=== PATIENT | male | born 1975 | race Caucasian/White ===

== ENCOUNTER 2023-10-02 20:49 | Inpatient (IN) | payer BC ==
[2023-10-02] VITALS (8 sets, daily range): O2SAT 89–94
[~2023-10-02] VITALS: Ht 172.7 cm; Wt 87.5 kg
[2023-10-02] MEDS ORDERED: ALBUTEROL FS 2.5 MG/3 ML VIAL.NEB ONE (21:08)
[2023-10-02] MEDS ORDERED: IPRATROPIUM NEB FS 0.5 MG/2.5 ML AMPUL.NEB ONE (21:08)
[2023-10-02] MEDS ORDERED: ACETAMINOPHEN 650 MG/SUPP.RECT RC ONE ×2 (21:09→21:30)
[2023-10-02] MEDS ORDERED: methylPREDNISolone SOD SUCC 125 MG/2ML VIAL ONE (21:29)
[2023-10-02] MEDS ORDERED: PIPERACI/TAZO 3.375GM/D5W 50ML PB IV ONE (21:29)
[2023-10-02] MEDS ORDERED: methylPREDNISolone SOD SUCC 125 MG/2ML VIAL IV ONE (21:30)
[2023-10-02] MEDS ORDERED: PIPERACILLIN /TAZOBACTAM 3.375 G in IV D5W 50 ML IV ONE (21:30)
[2023-10-02] MEDS ORDERED: ALBUTEROL FS 2.5 MG/3 ML VIAL.NEB NEB ONE (21:30)
[2023-10-02] MEDS ORDERED: IV LR 1000 ML 1,000 ML BAG IV ONE (21:30)
[2023-10-02] MEDS ORDERED: IPRATROPIUM NEB FS 0.5 MG/2.5 ML AMPUL.NEB NEB ONE (21:30)
[2023-10-02] MEDS ORDERED: VANCOMYCIN 1 GM in IV D5W 250 ML IV ONE (21:30)
[2023-10-02 21:33] LABS: BASOPHILS # (AUTO) 0.1 K/uL (0.0-0.2); BASOPHILS % (AUTO) 0.7 % (0.0-2.0); EOSINOPHILS # (AUTO) 0.2 K/uL (0.0-0.7); EOSINOPHILS % (AUTO) 2.2 % (0.0-6.0); HEMATOCRIT 40 % (39-51); HEMOGLOBIN 13.2 g/dL (13.5-17.5); LYMPHOCYTES # (AUTO) 1.6 K/uL (0.8-4.8); LYMPHOCYTES % (AUTO) 18.8 % (20.0-44.0); MEAN CORPUSCULAR HEMOGLOBIN 31 PG (26.0-33.0); MEAN CORPUSCULAR HGB CONC 33 g/dl (31.0-36.0); MEAN CORPUSCULAR VOLUME 93 fL (80-96); MONOCYTES # (AUTO) 0.9 K/uL (0.1-1.30); MONOCYTES % (AUTO) 11.2 % (2.0-12.0); NEUTROPHILS # (AUTO) 5.6 K/uL (1.8-8.9); NEUTROPHILS % (AUTO) 67.1 % (43.0-81.0); PLATELET COUNT (AUTO) 271 K/uL (150-450); RED BLOOD CELL COUNT(AUTO) 4.24 MIL/uL (4.5-6.0); RED CELL DISTRIBUTION WIDTH 15.1 % (11.5-15.0); WHITE BLOOD COUNT (AUTO) 8.4 K/uL (4.3-11.0)
[2023-10-02 21:51] LABS: CALCIUM, SERUM 9.1 mg/dL (8.5-10.1); CARBON DIOXIDE 27 mmol/L (21-32); CHLORIDE 98 mmol/L (98-107); CREATININE 0.5 mg/dL (0.6-1.3); GLUCOSE 152 mg/dL (74-106); POTASSIUM 4.8 mmol/L (3.5-5.1); SODIUM SERUM 133 mmol/L (136-145); UREA NITROGEN, BLOOD 16 mg/dL (7-18)
[2023-10-02 21:53] LABS: INR 1.08 (0.91-1.10); PARTIAL THROMBOPLASTIN TIME 39.5 SEC (24.3-34.3); PROTHROMBIN TIME 11.4 SECS (9.2-11.1)
[2023-10-02 21:55] LABS: APPEARANCE,URINE CLEAR (CLEAR); BILIRUBIN,URINE NEGATIVE (NEGATIVE); BLOOD, URINE 2+ Ery/uL (NEGATIVE); COLOR,URINE YELLOW (YELLOW); KETONES,URINE TRACE mg/dL (NEGATIVE); LEUKOCYTE ESTERASE ,URINE NEGATIVE (NEGATIVE); NITRITE, URINE NEGATIVE (NEGATIVE); PROTEIN,URINE NEGATIVE (NEGATIVE); UGLUCOSE NEGATIVE (NEGATIVE)
[2023-10-02] MEDS ORDERED: VANCOMYCIN 1 GM /D5W 250 ML PB IV ONE (21:56)
[2023-10-02 21:57] LABS: ALANINE AMINOTRANSFERASE 26 U/L (12-78); ALBUMIN 2.4 g/dL (3.4-5.0); ALKALINE PHOSPHATASE 96 U/L (46-116); ASPARTATE AMINOTRANSFERASE 26 U/L (15-37); BILIRUBIN,DIRECT 0.1 mg/dL (0.0-0.2); BILIRUBIN,TOTAL 0.5 mg/dL (0.2-1.0)
[2023-10-02 22:07] LABS: ADD URINE CULTURE NO; BACTERIA,URINE 1+ /HPF (None Seen); SQUAMOUS EPITHELIAL CELL,UR None Seen /HPF (None Seen); WBC,URINE 0-2 /HPF (0-3)
[2023-10-02] MEDS ORDERED: ALBUTEROL FS 2.5 MG/0.5 ML VIAL.NEB NEB ONE (22:30)
[2023-10-02] MEDS ORDERED: ALBUTEROL FS 2.5 MG/0.5 ML VIAL.NEB ONE (22:38)
[2023-10-03] MEDS ORDERED: MAG HYDROX/AL HYDROX/SIMETH 30 ML UDC PO PRN (01:00)
[2023-10-03] MEDS ORDERED: ACETAMINOPHEN 325 MG TABLET PO PRN (01:00)
[2023-10-03] MEDS ORDERED: MAGNESIUM HYDROXIDE 30 ML UDC PO PRN (01:00)
[2023-10-03] MEDS ORDERED: Z GUARD REMEDY 4 OZ OINT TP PRN (01:00)
[2023-10-03] MEDS ORDERED: ONDANSETRON HCL/PF 4 MG/2 ML VIAL IVP PRN (01:00)
[2023-10-03] MEDS ORDERED: IV NS 0.9% 1,000 ML IV PRN (01:00)
[2023-10-03] MEDS ORDERED: IBUPROFEN 400 MG TABLET ONE (01:21)
[2023-10-03] MEDS ORDERED: IBUPROFEN 400 MG TABLET GT ONE (01:30)
[2023-10-03] MEDS ORDERED: DEXTROSE 50%-WATER 50 ML DISP.SYRIN IV PRN (03:30)
[2023-10-03 05:31] LABS: ABG BASE EXCESS -2.3 mmol/L; ABG PCO2 38.1 mmHg (35.0-45.0); ABG PH 7.386 (7.350-7.450); ABG PO2 174.6 mmHg (75.0-100.0); AaDO2 211.3 mmHg; COHb 0.2 % (0.5-1.5); MetHb 0.2 % (0.0-1.5); O2Hb 98.6 % (94.0-97.0); SITE, ABG Right Radial
[2023-10-03] MEDS ORDERED: PIPERACILLIN /TAZOBACTAM 3.375 G in IV D5W 50 ML IV SCH (06:00)
[2023-10-03] MEDS ORDERED: methylPREDNISolone SOD SUCC 40 MG/ML VIAL ONE ×3 (06:20→20:16)
[2023-10-03] MEDS ORDERED: PIPERACI/TAZO 3.375GM/D5W 50ML PB IV ONE ×4 (06:20→23:36)
[2023-10-03] MEDS: BLOOD SUGAR DIAGNOSTIC 1 EACH STRIP IN SCH ×4 (06:27→23:11)
[2023-10-03] MEDS: methylPREDNISolone SOD SUCC 40 MG/ML VIAL IV SCH ×3 (06:28→20:21)
[2023-10-03] MEDS: ALBUTEROL HALF STRENGTH 1.25 MG/3 ML VIAL.NEB NEB SCH ×3 (07:03→23:33)
[2023-10-03] MEDS ORDERED: NYST15PO4 TP (08:46)
[2023-10-03] MEDS ORDERED: NUT.237L31 GT (08:46)
[2023-10-03] MEDS ORDERED: AMLO-212 GT (08:46)
[2023-10-03] MEDS ORDERED: CLOB15OI3 TP (08:46)
[2023-10-03] MEDS ORDERED: LANS30CA56 GT (08:46)
[2023-10-03] MEDS ORDERED: VALP250S4 GT (08:46)
[2023-10-03] MEDS ORDERED: ACET-868 GT ×2 (08:46)
[2023-10-03] MEDS ORDERED: LEVE100S GT (08:46)
[2023-10-03] MEDS ORDERED: ENOX40DI SQ (08:46)
[2023-10-03] MEDS ORDERED: ACET-2605 GT (08:46)
[2023-10-03] MEDS ORDERED: ASCO-352 GT (08:46)
[2023-10-03] MEDS ORDERED: FERR300L GT (08:46)
[2023-10-03] MEDS ORDERED: LACO10SO GT (08:46)
[2023-10-03] MEDS ORDERED: CHLO118L6 TP (08:46)
[2023-10-03] MEDS ORDERED: SODI1TAB66 GT (08:46)
[2023-10-03] MEDS ORDERED: DOCU50LI GT (08:46)
[2023-10-03] MEDS ORDERED: SENN-261 GT (08:46)
[2023-10-03] MEDS ORDERED: ATOR40TA GT (08:46)
[2023-10-03] MEDS ORDERED: NPH,100V SQ (08:46)
[2023-10-03] MEDS ORDERED: DEXT38GE12 GT (08:46)
[2023-10-03] MEDS ORDERED: ZINC56.713 TP (08:46)
[2023-10-03] MEDS ORDERED: MULT9LIQ6 GT (08:46)
[2023-10-03] MEDS ORDERED: LEVA1.2528 IH ×2 (08:46)
[2023-10-03] MEDS ORDERED: KETO15CR2 TP (08:46)
[2023-10-03] MEDS ORDERED: MAGN400O6 GT (08:46)
[2023-10-03] MEDS ORDERED: INSU100V27 SQ (08:46)
[2023-10-03] MEDS ORDERED: LOPE2TAB25 GT (08:46)
[2023-10-03] MEDS ORDERED: PROP40TA7 GT (08:46)
[2023-10-03] MEDS ORDERED: XEROFORM TD (08:46)
[2023-10-03] MEDS: VANCOMYCIN 1.25 GM in IV D5W 250 ML IV SCH ×2 (09:00→21:20)
[2023-10-03] MEDS: PIPERACILLIN /TAZOBACTAM 3.375 G in IV D5W 50 ML IV SCH ×3 (12:00→23:47)
[2023-10-03] MEDS ORDERED: INSULIN REGULAR, HUMAN 100 UNIT/ML 10 ML VIAL ONE (14:23)
[2023-10-03] MEDS ORDERED: VANCOMYCIN 500 MG VIAL ONE (21:09)
[2023-10-03] MEDS ORDERED: ZOLPIDEM TARTRATE 5 MG TABLET PO PRN (22:00)
[2023-10-03] MEDS ORDERED: ALBUTEROL FS 2.5 MG/3 ML VIAL.NEB ONE (23:34)
[2023-10-03] MEDS ORDERED: ONDANSETRON HCL/PF 4 MG/2 ML VIAL ONE (23:49)
[2023-10-04] MEDS ORDERED: INSULIN REGULAR, HUMAN 100 UNIT/ML 10 ML VIAL ONE ×2 (00:43→13:04)
[2023-10-04] MEDS: INSULIN REGULAR, HUMAN 100 UNIT/ML 3 ML VIAL SQ PRN ×2 (00:48→13:08)
[2023-10-04 05:15] LABS: ABG OXYGEN SATURATION 97.9 % (92.0-98.5); ABG PCO2 38.2 mmHg (35.0-45.0); ABG PO2 120.8 mmHg (75.0-100.0); ABG TOTAL HEMOGLOBIN 12.1 G/dL (13.5-18.0); COHb 0.2 % (0.5-1.5); MetHb 0.4 % (0.0-1.5); O2Hb 97.3 % (94.0-97.0); SITE, ABG Right Radial; VENT MODE, BG AC 18 500 40% +5
[2023-10-04] MEDS ORDERED: methylPREDNISolone SOD SUCC 40 MG/ML VIAL ONE ×3 (05:30→21:30)
[2023-10-04] MEDS: methylPREDNISolone SOD SUCC 40 MG/ML VIAL IV SCH ×3 (05:36→21:37)
[2023-10-04 05:53] LABS: BASOPHILS % (AUTO) 0.2 % (0.0-2.0); HEMATOCRIT 34 % (39-51); HEMOGLOBIN 11.2 g/dL (13.5-17.5); LYMPHOCYTES # (AUTO) 1.1 K/uL (0.8-4.8); LYMPHOCYTES % (AUTO) 15.9 % (20.0-44.0); MEAN CORPUSCULAR HEMOGLOBIN 31 PG (26.0-33.0); MEAN CORPUSCULAR HGB CONC 33 g/dl (31.0-36.0); MEAN CORPUSCULAR VOLUME 94 fL (80-96); MONOCYTES # (AUTO) 1.2 K/uL (0.1-1.30); MONOCYTES % (AUTO) 16.7 % (2.0-12.0); NEUTROPHILS # (AUTO) 4.8 K/uL (1.8-8.9); NEUTROPHILS % (AUTO) 67.2 % (43.0-81.0); PLATELET COUNT (AUTO) 169 K/uL (150-450); RED BLOOD CELL COUNT(AUTO) 3.58 MIL/uL (4.5-6.0); WHITE BLOOD COUNT (AUTO) 7.2 K/uL (4.3-11.0)
[2023-10-04 06:07] LABS: CALCIUM, SERUM 8.8 mg/dL (8.5-10.1); CREATININE 0.5 mg/dL (0.6-1.3); MAGNESIUM 1.7 mg/dL (1.8-2.4); PHOSPHORUS 3.9 mg/dL (2.5-4.9); POTASSIUM 3.9 mmol/L (3.5-5.1)
[2023-10-04] MEDS: BLOOD SUGAR DIAGNOSTIC 1 EACH STRIP IN SCH ×3 (06:54→17:46)
[2023-10-04] MEDS: PIPERACILLIN /TAZOBACTAM 3.375 G in IV D5W 50 ML IV SCH ×4 (07:00→23:59)
[2023-10-04] MEDS ORDERED: ALBUTEROL FS 2.5 MG/3 ML VIAL.NEB ONE ×3 (07:30→23:14)
[2023-10-04] MEDS: ALBUTEROL HALF STRENGTH 1.25 MG/3 ML VIAL.NEB NEB SCH ×3 (07:40→23:12)
[2023-10-04] MEDS: VANCOMYCIN 1.25 GM in IV D5W 250 ML IV SCH (09:50)
[2023-10-04] MEDS ORDERED: ENOXAPARIN SODIUM 40 MG/0.4 ML DISP.SYRIN SQ ONE (10:04)
[2023-10-04] MEDS: ENOXAPARIN SODIUM 40 MG/0.4 ML DISP.SYRIN SQ SCH (10:10)
[2023-10-04] MEDS: Magnesium 1GM/D5W 100ML PREMIX 100 ML IV SCH ×2 (11:33→12:30)
[2023-10-04] MEDS ORDERED: methylPREDNISolone SOD SUCC 125 MG/2ML VIAL ONE (13:09)
[2023-10-04] MEDS: VANCOMYCIN 1 GM in IV D5W 250ml IV SCH (18:52)
[2023-10-05] VITALS (20 sets, daily range): BP systolic 90–192; BP diastolic 63–125; TEMP 98.5–98.8; O2SAT 97–100
[2023-10-05] MEDS: BLOOD SUGAR DIAGNOSTIC 1 EACH STRIP IN SCH ×4 (00:05→17:38)
[2023-10-05] MEDS: VANCOMYCIN 1 GM in IV D5W 250ml IV SCH ×2 (02:00→09:56)
[2023-10-05] MEDS ORDERED: methylPREDNISolone SOD SUCC 40 MG/ML VIAL ONE (04:54)
[2023-10-05] MEDS: methylPREDNISolone SOD SUCC 40 MG/ML VIAL IV SCH ×3 (04:54→20:47)
[2023-10-05] MEDS: PIPERACILLIN /TAZOBACTAM 3.375 G in IV D5W 50 ML IV SCH ×4 (05:53→23:56)
[2023-10-05 06:03] LABS: CALCIUM, SERUM 8.8 mg/dL (8.5-10.1); CREATININE 0.6 mg/dL (0.6-1.3); MAGNESIUM 1.7 mg/dL (1.8-2.4); POTASSIUM 3.5 mmol/L (3.5-5.1)
[2023-10-05] MEDS: ALBUTEROL HALF STRENGTH 1.25 MG/3 ML VIAL.NEB NEB SCH ×3 (07:35→23:30)
[2023-10-05] MEDS ORDERED: MORPHINE SULFATE INJ 4 MG/ML DISP.SYRIN IV PRN (09:30)
[2023-10-05] MEDS: LORAZEPAM INJ 2 MG/ML VIAL IV PRN ×2 (09:37→11:04)
[2023-10-05] MEDS: ENOXAPARIN SODIUM 40 MG/0.4 ML DISP.SYRIN SQ SCH (10:00)
[2023-10-05] MEDS: Magnesium 1GM/D5W 100ML PREMIX 100 ML IV SCH ×2 (11:46→13:28)
[2023-10-05] MEDS: GLUCERNA 1.2 1,000 ML BOTTLE NG PRN (14:10)
[2023-10-05] MEDS: VANCOMYCIN HCL 0.75 GM in IV D5W 250 ML IV SCH (17:37)
[2023-10-05] MEDS: INSULIN REGULAR, HUMAN 100 UNIT/ML 3 ML VIAL SQ PRN (18:04)
[2023-10-05] MEDS: PROPOFOL 100 ML IV PRN (21:45)
[2023-10-06] VITALS (26 sets, daily range): BP systolic 98–139; BP diastolic 58–103; TEMP 98–98.7; O2SAT 100
[2023-10-06] MEDS: BLOOD SUGAR DIAGNOSTIC 1 EACH STRIP IN SCH ×5 (00:03→23:47)
[2023-10-06] MEDS: INSULIN REGULAR, HUMAN 100 UNIT/ML 3 ML VIAL SQ PRN ×5 (00:09→23:48)
[2023-10-06] MEDS: VANCOMYCIN HCL 0.75 GM in IV D5W 250 ML IV SCH ×3 (01:42→18:00)
[2023-10-06 04:05] LABS: BASOPHILS % (AUTO) 0.1 % (0.0-2.0); HEMATOCRIT 31 % (39-51); LYMPHOCYTES # (AUTO) 0.7 K/uL (0.8-4.8); LYMPHOCYTES % (AUTO) 15.3 % (20.0-44.0); MEAN CORPUSCULAR HEMOGLOBIN 31 PG (26.0-33.0); MEAN CORPUSCULAR HGB CONC 33 g/dl (31.0-36.0); MEAN CORPUSCULAR VOLUME 94 fL (80-96); MONOCYTES # (AUTO) 0.4 K/uL (0.1-1.30); MONOCYTES % (AUTO) 8.1 % (2.0-12.0); NEUTROPHILS # (AUTO) 3.4 K/uL (1.8-8.9); NEUTROPHILS % (AUTO) 76.5 % (43.0-81.0); PLATELET COUNT (AUTO) 171 K/uL (150-450); RED BLOOD CELL COUNT(AUTO) 3.23 MIL/uL (4.5-6.0); RED CELL DISTRIBUTION WIDTH 14.8 % (11.5-15.0); WHITE BLOOD COUNT (AUTO) 4.4 K/uL (4.3-11.0)
[2023-10-06 04:17] LABS: CALCIUM, SERUM 8.7 mg/dL (8.5-10.1); CREATININE 0.6 mg/dL (0.6-1.3); PHOSPHORUS 4.3 mg/dL (2.5-4.9); POTASSIUM 3.1 mmol/L (3.5-5.1)
[2023-10-06] MEDS: methylPREDNISolone SOD SUCC 40 MG/ML VIAL IV SCH ×2 (04:49→10:56)
[2023-10-06] MEDS: PIPERACILLIN /TAZOBACTAM 3.375 G in IV D5W 50 ML IV SCH ×4 (05:35→23:35)
[2023-10-06] MEDS: PROPOFOL 100 ML IV PRN (08:02)
[2023-10-06] MEDS: ALBUTEROL HALF STRENGTH 1.25 MG/3 ML VIAL.NEB NEB SCH ×3 (08:27→23:29)
[2023-10-06] MEDS ORDERED: POTASSIUM CHLORIDE 20 MEQ POWDER PACKET NG SCH (08:30)
[2023-10-06] MEDS: ENOXAPARIN SODIUM 40 MG/0.4 ML DISP.SYRIN SQ SCH (08:44)
[2023-10-06] MEDS ORDERED: POTASSIUM CHLORIDE 20 MEQ POWDER PACKET GT SCH (09:00)
[2023-10-06] MEDS: LORAZEPAM INJ 2 MG/ML VIAL IV PRN ×2 (09:02→18:55)
[2023-10-06] MEDS: VALPROIC ACID 250 MG/5 ML UDC GT SCH ×3 (10:54→20:58)
[2023-10-06] MEDS: LEVETIRACETAM SOL (5 ML) 100 MG/ML UDC GT SCH ×2 (10:54→20:58)
[2023-10-06] MEDS: LACOSAMIDE ORAL SOLN 50 MG/5 ML UDC GT SCH ×2 (10:55→20:58)
[2023-10-06] MEDS: GLUCERNA 1.2 1,000 ML BOTTLE NG PRN (18:02)
[2023-10-07] VITALS (21 sets, daily range): BP systolic 97–135; BP diastolic 56–96; TEMP 98.3–98.7; O2SAT 80–100
[2023-10-07 04:26] LABS: CALCIUM, SERUM 7.9 mg/dL (8.5-10.1); CREATININE 0.6 mg/dL (0.6-1.3)
[2023-10-07 04:57] LABS: POTASSIUM 2.8 mmol/L (3.5-5.1)
[2023-10-07] MEDS: VALPROIC ACID 250 MG/5 ML UDC GT SCH ×3 (05:12→20:11)
[2023-10-07] MEDS: PIPERACILLIN /TAZOBACTAM 3.375 G in IV D5W 50 ML IV SCH ×3 (05:29→18:59)
[2023-10-07] MEDS: VANCOMYCIN 1 GM in IV D5W 250 ML IV SCH ×2 (05:31→16:19)
[2023-10-07] MEDS: BLOOD SUGAR DIAGNOSTIC 1 EACH STRIP IN SCH ×4 (06:28→23:37)
[2023-10-07] MEDS: INSULIN REGULAR, HUMAN 100 UNIT/ML 3 ML VIAL SQ PRN ×4 (06:29→23:37)
[2023-10-07] MEDS: ALBUTEROL HALF STRENGTH 1.25 MG/3 ML VIAL.NEB NEB SCH ×2 (07:47→15:30)
[2023-10-07] MEDS: LEVETIRACETAM SOL (5 ML) 100 MG/ML UDC GT SCH ×2 (08:02→20:11)
[2023-10-07] MEDS: LACOSAMIDE ORAL SOLN 50 MG/5 ML UDC GT SCH ×2 (08:03→20:10)
[2023-10-07] MEDS: methylPREDNISolone SOD SUCC 40 MG/ML VIAL IV SCH (08:03)
[2023-10-07] MEDS: ENOXAPARIN SODIUM 40 MG/0.4 ML DISP.SYRIN SQ SCH (08:04)
[2023-10-07] MEDS ORDERED: POTASSIUM CHLORIDE 20 MEQ POWDER PACKET GT ONE (11:00)
[2023-10-07] MEDS: GLUCERNA 1.2 1,000 ML BOTTLE NG PRN (16:29)
[2023-10-08] VITALS: BP 108/82; TEMP 98.4; O2SAT 100
[2023-10-08] MEDS: PIPERACILLIN /TAZOBACTAM 3.375 G in IV D5W 50 ML IV SCH ×4 (00:19→18:02)
[2023-10-08 04:00] VITALS: BP 140/98; TEMP 97.9; O2SAT 98
[2023-10-08] MEDS: VALPROIC ACID 250 MG/5 ML UDC GT SCH ×3 (04:59→21:53)
[2023-10-08] MEDS: VANCOMYCIN 1 GM in IV D5W 250 ML IV SCH ×2 (05:11→17:07)
[2023-10-08] MEDS: BLOOD SUGAR DIAGNOSTIC 1 EACH STRIP IN SCH ×4 (05:26→23:51)
[2023-10-08] MEDS: INSULIN REGULAR, HUMAN 100 UNIT/ML 3 ML VIAL SQ PRN ×4 (05:26→23:53)
[2023-10-08 06:33] LABS: BASOPHILS % (AUTO) 0.1 % (0.0-2.0); EOSINOPHILS % (AUTO) 0.3 % (0.0-6.0); HEMATOCRIT 33 % (39-51); HEMOGLOBIN 10.6 g/dL (13.5-17.5); LYMPHOCYTES # (AUTO) 2.2 K/uL (0.8-4.8); LYMPHOCYTES % (AUTO) 34.1 % (20.0-44.0); MEAN CORPUSCULAR HEMOGLOBIN 31 PG (26.0-33.0); MEAN CORPUSCULAR HGB CONC 32 g/dl (31.0-36.0); MEAN CORPUSCULAR VOLUME 96 fL (80-96); MONOCYTES # (AUTO) 0.7 K/uL (0.1-1.30); MONOCYTES % (AUTO) 11.5 % (2.0-12.0); NEUTROPHILS # (AUTO) 3.5 K/uL (1.8-8.9); PLATELET COUNT (AUTO) 150 K/uL (150-450); RED BLOOD CELL COUNT(AUTO) 3.45 MIL/uL (4.5-6.0); RED CELL DISTRIBUTION WIDTH 14.9 % (11.5-15.0); WHITE BLOOD COUNT (AUTO) 6.5 K/uL (4.3-11.0)
[2023-10-08 07:17] LABS: CALCIUM, SERUM 8.7 mg/dL (8.5-10.1); CREATININE 0.6 mg/dL (0.6-1.3); MAGNESIUM 2.1 mg/dL (1.8-2.4); PHOSPHORUS 3.7 mg/dL (2.5-4.9); POTASSIUM 3.6 mmol/L (3.5-5.1)
[2023-10-08 08:00] VITALS: BP 123/108; TEMP 97.9; O2SAT 100
[2023-10-08] MEDS: ALBUTEROL HALF STRENGTH 1.25 MG/3 ML VIAL.NEB NEB SCH ×3 (08:03→23:26)
[2023-10-08] MEDS: LEVETIRACETAM SOL (5 ML) 100 MG/ML UDC GT SCH ×2 (09:22→21:53)
[2023-10-08] MEDS: LACOSAMIDE ORAL SOLN 50 MG/5 ML UDC GT SCH ×2 (09:22→21:53)
[2023-10-08] MEDS: methylPREDNISolone SOD SUCC 40 MG/ML VIAL IV SCH (09:22)
[2023-10-08] MEDS: ENOXAPARIN SODIUM 40 MG/0.4 ML DISP.SYRIN SQ SCH (09:25)
[2023-10-08 12:00] VITALS: BP 113/88; TEMP 98.2; O2SAT 98
[2023-10-08] MEDS: GLUCERNA 1.2 1,000 ML BOTTLE NG PRN (13:37)
[2023-10-08 16:00] VITALS: BP 110/75; TEMP 98.1; O2SAT 100
[2023-10-08 20:00] VITALS: BP 113/84; TEMP 98.8; O2SAT 97
[2023-10-09] VITALS: BP 119/83; TEMP 98.6; O2SAT 96
[2023-10-09 04:00] VITALS: BP 115/81; TEMP 98.5; O2SAT 97
[2023-10-09] MEDS: VALPROIC ACID 250 MG/5 ML UDC GT SCH ×2 (04:34→12:10)
[2023-10-09] MEDS: BLOOD SUGAR DIAGNOSTIC 1 EACH STRIP IN SCH ×2 (06:01→12:08)
[2023-10-09] MEDS: GLUCERNA 1.2 1,000 ML BOTTLE NG PRN (06:01)
[2023-10-09] MEDS: INSULIN REGULAR, HUMAN 100 UNIT/ML 3 ML VIAL SQ PRN ×2 (06:02→12:18)
[2023-10-09] MEDS: ALBUTEROL HALF STRENGTH 1.25 MG/3 ML VIAL.NEB NEB SCH ×2 (07:53→14:57)
[2023-10-09 08:00] VITALS: BP 106/92; TEMP 99.5; O2SAT 100
[2023-10-09] MEDS ORDERED: MAG HYDROX/AL HYDROX/SIMETH 30 ML UDC GT PRN (08:01)
[2023-10-09] MEDS ORDERED: MAGNESIUM HYDROXIDE 30 ML UDC GT PRN (08:02)
[2023-10-09 08:21] LABS: CALCIUM, SERUM 8.7 mg/dL (8.5-10.1); CREATININE 0.5 mg/dL (0.6-1.3); POTASSIUM 3.8 mmol/L (3.5-5.1)
[2023-10-09] MEDS ORDERED: ACETAMINOPHEN 650 MG/20.3 ML UDC GT PRN (08:30)
[2023-10-09] MEDS: LACOSAMIDE ORAL SOLN 50 MG/5 ML UDC GT SCH (09:13)
[2023-10-09] MEDS: methylPREDNISolone SOD SUCC 40 MG/ML VIAL IV SCH (09:13)
[2023-10-09] MEDS: ENOXAPARIN SODIUM 40 MG/0.4 ML DISP.SYRIN SQ SCH (09:14)
[2023-10-09] MEDS: LEVETIRACETAM SOL (5 ML) 100 MG/ML UDC GT SCH (09:15)
[2023-10-09 12:07] VITALS: BP 113/80; TEMP 99.6; O2SAT 100
[2023-10-09 16:14] VITALS: BP 108/65; TEMP 98.9; O2SAT 100
== END 2023-10-09 17:51 | DRG 870 ==
LOC: ER 21:03 → TRANSITION 10-03 06:17 → ICU 10-04 05:35 → TRANSITION 10-04 09:06 → ICU 10-04 18:43 → TRANSITION 10-05 03:26 → ICU 10-05 08:53 → TELE-TD 10-07 18:18 → TELE1 10-09 08:53
PROVIDERS: ADMIT Nurse Practitioner Acute Care; ATTEND Internal Medicine Nephrology
PROC: 5A1955Z Respiratory Ventilation, Greater than 96 Consecutive Hours (ICD-10-PCS; principal; 2023-10-03)
PROC: 05H533Z Insertion of Infusion Device into Right Subclavian Vein, Percutaneous Approach (ICD-10-PCS; 2023-10-05)
PROC: B546ZZA Ultrasonography of Right Subclavian Vein, Guidance (ICD-10-PCS; 2023-10-05)
DX: A41.9 Sepsis, unspecified organism (principal); G93.41 Metabolic encephalopathy; J96.21 Acute and chronic respiratory failure with hypoxia; J69.0 Pneumonitis due to inhalation of food and vomit; J44.0 Chronic obstructive pulmonary disease with (acute) lower respiratory infection; J44.1 Chronic obstructive pulmonary disease with (acute) exacerbation; E44.0 Moderate protein-calorie malnutrition; E87.20 Acidosis, unspecified; Z99.11 Dependence on respirator [ventilator] status; D68.69 Other thrombophilia; G93.1 Anoxic brain damage, not elsewhere classified; E11.9 Type 2 diabetes mellitus without complications; E78.5 Hyperlipidemia, unspecified; E87.6 Hypokalemia; E88.09 Other disorders of plasma-protein metabolism, not elsewhere classified; G40.909 Epilepsy, unspecified, not intractable, without status epilepticus; I10 Essential (primary) hypertension; R13.10 Dysphagia, unspecified; Z74.01 Bed confinement status; Z93.0 Tracheostomy status; Z93.1 Gastrostomy status; Z86.74 Personal history of sudden cardiac arrest; Z68.29 Body mass index [BMI] 29.0-29.9, adult; Z20.822 Contact with and (suspected) exposure to COVID-19
CPT/HCPCS: 31720; 36415; 36600; 71045-TC; 80048-TC; 80076-TC; 80202-TC; 81001; 82803-TC; 82962-TC; 83605-TC; 83735-TC; 84100-TC; 84484-TC; 85025-TC; 85730-TC; 87040-TC; 87081-TC; 87086-TC; 93307-TC; 94002-TC; 94003-TC; 94799-TC; 99082-TC; A4223; A4349; G0378; J1650; J1815; J1953; J2060; J2405; J2543; J2920; J2930; J3370; J3475; J3490; J7050; J7060; J7120

== ENCOUNTER 2024-05-11 22:29 | Emergency (ER) | payer BC, OTHER ==
[~2024-05-11] VITALS: Ht 172.7 cm; Wt 89.4 kg
[~2024-05-11 22:29] MED LIST: ACET-2605 GT; ACET-868 GT; AMLO-212 GT; ASCO-352 GT; ATOR40TA GT; CHLO118L6 TP; CLOB15OI3 TP; DEXT38GE12 GT; DOCU50LI GT; ENOX40DI SQ; FERR300L GT; INSU100V27 SQ; KETO15CR2 TP; LACO10SO GT; LANS30CA56 GT; LEVA1.2528 IH; LEVE100S GT; LOPE2TAB25 GT; MAGN400O6 GT; MULT9LIQ6 GT; NPH,100V SQ; NUT.237L31 GT; NYST15PO4 TP; PROP40TA7 GT; SENN-261 GT; SODI1TAB66 GT; VALP250S4 GT; XEROFORM TD; ZINC56.713 TP
[2024-05-11 22:54] LABS: BASOPHILS # (AUTO) 0.1 K/uL (0.0-0.2); BASOPHILS % (AUTO) 0.9 % (0.0-2.0); EOSINOPHILS # (AUTO) 0.4 K/uL (0.0-0.7); EOSINOPHILS % (AUTO) 4.7 % (0.0-6.0); HEMATOCRIT 39 % (39-51); LYMPHOCYTES # (AUTO) 2.2 K/uL (0.8-4.8); LYMPHOCYTES % (AUTO) 26.7 % (20.0-44.0); MEAN CORPUSCULAR HEMOGLOBIN 31 PG (26.0-33.0); MEAN CORPUSCULAR HGB CONC 34 g/dl (31.0-36.0); MEAN CORPUSCULAR VOLUME 94 fL (80-96); MONOCYTES # (AUTO) 0.8 K/uL (0.1-1.30); MONOCYTES % (AUTO) 9.1 % (2.0-12.0); NEUTROPHILS # (AUTO) 4.9 K/uL (1.8-8.9); NEUTROPHILS % (AUTO) 58.6 % (43.0-81.0); PLATELET COUNT (AUTO) 193 K/uL (150-450); RED BLOOD CELL COUNT(AUTO) 4.13 MIL/uL (4.5-6.0); RED CELL DISTRIBUTION WIDTH 13.9 % (11.5-15.0); WHITE BLOOD COUNT (AUTO) 8.4 K/uL (4.3-11.0)
[2024-05-11 23:05] LABS: CALCIUM, SERUM 8.6 mg/dL (8.5-10.1); CARBON DIOXIDE 29 mmol/L (21-32); CHLORIDE 99 mmol/L (98-107); CREATININE 0.6 mg/dL (0.6-1.3); GLUCOSE 185 mg/dL (74-106); POTASSIUM 4.1 mmol/L (3.5-5.1); SODIUM SERUM 135 mmol/L (136-145); UREA NITROGEN, BLOOD 9 mg/dL (7-18)
[2024-05-11 23:10] LABS: INR 1.02 (0.91-1.10); PARTIAL THROMBOPLASTIN TIME 34.1 SEC (24.3-34.3); PROTHROMBIN TIME 10.8 SECS (9.2-11.1)
[2024-05-11 23:13] LABS: LACTIC ACID 1.8 mmol/L (0.4-2.0)
[2024-05-11 23:19] LABS: ALANINE AMINOTRANSFERASE 17 U/L (12-78); ALBUMIN 2.2 g/dL (3.4-5.0); ALKALINE PHOSPHATASE 70 U/L (46-116); ASPARTATE AMINOTRANSFERASE 14 U/L (15-37); BILIRUBIN,DIRECT 0.1 mg/dL (0.0-0.2); BILIRUBIN,TOTAL 0.4 mg/dL (0.2-1.0); NT-PRO BNP 99 pg/mL (0-125); TOTAL PROTEIN, SERUM 6.9 g/dL (6.4-8.2)
[2024-05-11 23:48] LABS: APPEARANCE,URINE CLEAR (CLEAR); BILIRUBIN,URINE NEGATIVE (NEGATIVE); BLOOD, URINE NEGATIVE Ery/uL (NEGATIVE); COLOR,URINE YELLOW (YELLOW); KETONES,URINE NEGATIVE (NEGATIVE); LEUKOCYTE ESTERASE ,URINE NEGATIVE (NEGATIVE); NITRITE, URINE NEGATIVE (NEGATIVE); PH,URINE 6.5 (5.0-8.0); PROTEIN,URINE NEGATIVE (NEGATIVE); UGLUCOSE NEGATIVE (NEGATIVE)
[2024-05-11 23:49] LABS: ADD URINE CULTURE NO; BACTERIA,URINE Rare /HPF (None Seen); RBC,URINE 0-2 /HPF (0-2); SQUAMOUS EPITHELIAL CELL,UR Few /HPF (None Seen); WBC,URINE 0-2 /HPF (0-3)
[2024-05-12] MEDS ORDERED: LORAZEPAM INJ 2 MG/ML VIAL ONE (11:21)
[2024-05-12] MEDS: LORAZEPAM INJ 2 MG/ML VIAL IV ONE (11:27)
[2024-05-12 12:04] VITALS: BP 116/91; TEMP 99; O2SAT 100
== END 2024-05-12 12:13 ==
LOC: ER 22:34
DX: J44.9 Chronic obstructive pulmonary disease, unspecified (principal); G93.1 Anoxic brain damage, not elsewhere classified; G40.909 Epilepsy, unspecified, not intractable, without status epilepticus; K21.9 Gastro-esophageal reflux disease without esophagitis; E11.9 Type 2 diabetes mellitus without complications; Z93.0 Tracheostomy status; Z86.74 Personal history of sudden cardiac arrest; Z20.822 Contact with and (suspected) exposure to COVID-19
CPT/HCPCS: 99285; 71045; 87426; 93005; 87804 ×2; 85025; 80048; 87040 ×2; 83605; 80076; 81001; 36415; 84484; 85730; 87081; 83880; 96374; 94799; 31720; J2060